=== PATIENT | female | born 1940 | race Caucasian/White ===

== ENCOUNTER 2017-09-10 23:45 | Emergency (ER) | payer MEDICARE ==
[~2017-09-10] VITALS: Ht 152.4 cm; Wt 59.0 kg
--- NOTE | 2017-09-10 23:48 | NUR ---
PT BIB [facility] WITH A C/O AMS. PT WAS AT A DETOX CENTER TO BE WEANED OFF OF ATIVAN. PER PT'S SON, PT WAS ON ATIVAN FOR 50YRS. PT WAS D/C'D HOME AND HAS 24HR CAREGIVERS. PT WAS PLACED ON SEROQUEL, PHENOBARBITAL, PROPANOLOL, & GABAPENTIN. PT IS AWAKE BUT ALERT TO SELF. PT IS ON THE MONITOR AND CONTINUOUS PULSE OX. EKG IN PROGRESS AT THE BEDSIDE.
--- NOTE | 2017-09-11 00:05 | NUR ---
DR. CADET IS AT THE BEDSIDE SPEAKING TO THE PT'S SON AND CAREGIVER.
--- NOTE | 2017-09-11 00:25 | NUR ---
PT LEFT FOR CT VIA RNEY
[2017-09-11 00:28] LABS: BASOPHILS # (AUTO) 0.1 /CMM (0.0-0.2); BASOPHILS % (AUTO) 1.1 % (0.0-2.0); EOSINOPHILS # (AUTO) 0.3 /CMM (0.0-0.7); EOSINOPHILS % (AUTO) 2.9 % (0.0-6.0); HEMATOCRIT 43 % (33-45); HEMOGLOBIN 14.2 g/dL (11.5-14.8); LYMPHOCYTES # (AUTO) 2.4 /CMM (0.8-4.8); LYMPHOCYTES % (AUTO) 24.9 % (20.0-44.0); MEAN CORPUSCULAR HEMOGLOBIN 29 PG (26.0-33.0); MEAN CORPUSCULAR HGB CONC 33 g/dl (31.0-36.0); MEAN CORPUSCULAR VOLUME 88 fL (82-100); MONOCYTES # (AUTO) 1.1 /CMM (0.1-1.30); MONOCYTES % (AUTO) 11.5 % (2.0-12.0); NEUTROPHILS # (AUTO) 5.7 /CMM (1.8-8.9); NEUTROPHILS % (AUTO) 59.6 % (43.0-81.0); PLATELET COUNT (AUTO) 322 /CMM (150-450); RDW COEFFICIENT OF VARIATION 12.6 (11.5-15.0); RED BLOOD CELL COUNT(AUTO) 4.84 MIL/uL (4.0-5.2); WHITE BLOOD COUNT (AUTO) 9.6 K/uL (4.3-11.0)
[2017-09-11 00:33] LABS: CALCIUM, SERUM 10.9 mg/dL (8.5-10.1); CARBON DIOXIDE 23 mmol/L (21-32); CHLORIDE 96 mmol/L (98-107); CREATININE 0.6 mg/dL (0.6-1.3); GLUCOSE 127 mg/dL (74-106); POTASSIUM 3.7 mmol/L (3.5-5.1); SODIUM SERUM 131 mmol/L (136-145); UREA NITROGEN, BLOOD 7 mg/dL (7-18)
[2017-09-11 00:36] LABS: INR 0.98 (0.87-1.13)
[2017-09-11 00:39] LABS: ALANINE AMINOTRANSFERASE 43 U/L (12-78); ALBUMIN 3.9 g/dL (3.4-5.0); ALCOHOL, BLOOD < 3 mg/dL (0-0); ALKALINE PHOSPHATASE 91 U/L (46-116); ASPARTATE AMINOTRANSFERASE 25 U/L (15-37); BILIRUBIN,DIRECT 0.1 mg/dL (0.0-0.2); BILIRUBIN,TOTAL 0.4 mg/dL (0.2-1.0); TOTAL PROTEIN, SERUM 8.6 g/dL (6.4-8.2)
[2017-09-11 00:40] LABS: TROPONIN I < 0.017 ng/mL (0.00-0.056)
[2017-09-11 00:41] LABS: SALICYLATE 1.6 mg/dL (2.8-20.0)
[2017-09-11 00:42] LABS: ACETAMINOPHEN 0 ug/ml (10-30)
--- NOTE | 2017-09-11 00:48 | NUR ---
PT APPEARS TO BE RESTING COMFORTABLY.
[2017-09-11 00:52] LABS: APPEARANCE,URINE CLEAR (CLEAR); BILIRUBIN,URINE NEGATIVE (NEGATIVE); BLOOD, URINE NEGATIVE Ery/uL (NEGATIVE); COLOR,URINE YELLOW (YELLOW); KETONES,URINE 1+ (NEGATIVE); LEUKOCYTE ESTERASE ,URINE NEGATIVE (NEGATIVE); NITRITE, URINE NEGATIVE (NEGATIVE); PH,URINE 6.5 (5.0-8.0); PROTEIN,URINE NEGATIVE (NEGATIVE); UGLUCOSE NEGATIVE (NEGATIVE); UROBILINOGEN,URINE 0.2 EU/dL (0.2)
[2017-09-11 00:58] LABS: BACTERIA,URINE Few /HPF (None Seen); RBC,URINE 0-2 /HPF (0-2); SQUAMOUS EPITHELIAL CELL,UR Rare /HPF (None Seen); WBC,URINE 0-2 /HPF (0-3)
--- NOTE | 2017-09-11 02:11 | NUR ---
Patient discharged to home in stable condition. Written and verbal after care instructions given. Patient verbalizes understanding of instruction. PT'S SON AND CAREGIVER ARE DRIVING PT HOME. VSS. PT REC'D A REFERRAL TO DR. CANTU, RUBBER CUTTER AND SHAPE CARVER IN [place].
[2017-09-11 02:14] VITALS: BP 148/77
--- NOTE | 2017-09-11 02:17 | NUR ---
PT LEFT VIA WC. PT'S SON IS DRIVING HER HOME.
== END 2017-09-11 02:14 | disposition home or self-care (01) ==
LOC: ER 23:47
DX: R41.82 Altered mental status, unspecified (principal); I10 Essential (primary) hypertension; F41.9 Anxiety disorder, unspecified
CPT/HCPCS: 36415; 70450-TC; 71045-TC; 80048-TC; 80076-TC; 80305; 81000-TC; 82962-TC; 83605-TC; 84484-TC; 85025-TC; 85730-TC; 87040-TC; A4606; G0480; Z7610

== ENCOUNTER 2021-07-11 13:35 | Inpatient (IN) | payer MEDICARE ==
[~2021-07-11] VITALS: Ht 152.4 cm; Wt 56.2 kg
--- NOTE | 2021-07-11 14:37 | NUR ---
RAPID INFLUENZA, COVID ANTIGEN AND COVID PCR SWABS DONE AND SENT TO THE LAB
--- NOTE | 2021-07-11 14:39 | NUR ---
X-RAY TECH AT THE BEDSIDE
[2021-07-11 14:52] LABS: BASOPHILS % (AUTO) 0.3 % (0.0-2.0); HEMATOCRIT 42 % (33-45); HEMOGLOBIN 13.7 g/dL (11.5-14.8); LYMPHOCYTES # (AUTO) 0.8 K/uL (0.8-4.8); LYMPHOCYTES % (AUTO) 8.6 % (20.0-44.0); MEAN CORPUSCULAR HGB CONC 33 g/dl (31.0-36.0); MEAN CORPUSCULAR VOLUME 85 fL (82-100); NEUTROPHILS # (AUTO) 7.3 K/uL (1.8-8.9); NEUTROPHILS % (AUTO) 80.1 % (43.0-81.0); PLATELET COUNT (AUTO) 323 K/uL (150-450); WHITE BLOOD COUNT (AUTO) 9.1 K/uL (4.3-11.0)
[2021-07-11] MEDS ORDERED: ESTR0.5T PO (15:03)
[2021-07-11 15:04] LABS: CALCIUM, SERUM 9.4 mg/dL (8.5-10.1); CARBON DIOXIDE 26 mmol/L (21-32); CHLORIDE 96 mmol/L (98-107); CREATININE 0.8 mg/dL (0.6-1.3); GLUCOSE 105 mg/dL (74-106); POTASSIUM 3.9 mmol/L (3.5-5.1); SODIUM SERUM 132 mmol/L (136-145); UREA NITROGEN, BLOOD 10 mg/dL (7-18)
[2021-07-11 15:08] LABS: CREATINE KINASE, TOTAL 78 U/L (26-192)
[2021-07-11 15:11] LABS: C-REACTIVE PROTEIN 11.7 mg/dL (0.0-0.9)
[2021-07-11 15:17] LABS: ALANINE AMINOTRANSFERASE 25 U/L (12-78); ALBUMIN 2.5 g/dL (3.4-5.0); ALKALINE PHOSPHATASE 57 U/L (46-116); ASPARTATE AMINOTRANSFERASE 35 U/L (15-37); BILIRUBIN,TOTAL 0.4 mg/dL (0.2-1.0); TOTAL PROTEIN, SERUM 7.4 g/dL (6.4-8.2)
--- NOTE | 2021-07-11 15:39 | NUR ---
UPDATED SISTER GLENN [phone] - [phone]
[2021-07-11 15:52] LABS: D-DIMER 1.67 mg/L(FEU (0.17-0.50)
[2021-07-11] MEDS ORDERED: AZITHROMYCIN 500 MG in IV D5W 250 ML IV ONE (16:00)
[2021-07-11] MEDS ORDERED: CEFTRIAXONE 1 G in IV D5W 50 ML IV ONE (16:00)
--- NOTE | 2021-07-11 16:20 | NUR ---
URINE COLLECTED AND SENT TO THE LAB
[2021-07-11] MEDS ORDERED: CEFTRIAXONE 1GM BAG (ER ONLY) 50 ML IV ONE (16:34)
[2021-07-11] MEDS ORDERED: IV NS 0.9% 250 ML IV ONE (16:57)
[2021-07-11] MEDS ORDERED: IOHEXOL-350 100 ML VIAL IV ONE (16:57)
--- NOTE | 2021-07-11 17:01 | NUR ---
THE PATIENT IS TAKEN TO CT VIA RNEY
[2021-07-11 18:10] LABS: BILIRUBIN,URINE SMALL (NEGATIVE); COLOR,URINE YELLOW (YELLOW); LEUKOCYTE ESTERASE ,URINE NEGATIVE (NEGATIVE); NITRITE, URINE NEGATIVE (NEGATIVE); PROTEIN,URINE 30 mg/dl (NEGATIVE); UGLUCOSE NEGATIVE (NEGATIVE)
[2021-07-11 18:18] LABS: BACTERIA,URINE Many /HPF (None Seen); SQUAMOUS EPITHELIAL CELL,UR Many /HPF (None Seen)
[2021-07-11 18:19] LABS: RBC,URINE 0-2 /HPF (0-2)
[2021-07-11] MEDS ORDERED: LORAZEPAM INJ 2 MG/ML VIAL IV PRN (18:30)
[2021-07-11] MEDS ORDERED: ONDANSETRON HCL/PF 4 MG/2 ML VIAL IVP PRN (18:30)
[2021-07-11] MEDS ORDERED: ACETAMINOPHEN 325 MG TABLET PO PRN (18:30)
[2021-07-11] MEDS ORDERED: ALBUTEROL SULFATE 8 GM HFA.AER.AD IH PRN (18:30)
--- NOTE | 2021-07-11 18:50 | NUR ---
bes assigned, 109 for next shift
--- NOTE | 2021-07-11 19:22 | NUR ---
REPORT GIVEN TO NURSE YAMILE FOR TONJA
--- NOTE | 2021-07-11 19:30 | NUR ---
SUPPLY CHAIN MANAGER NOTE ADMIT 81 YEAR OLD FEMALE TO ROOM 109 AT [facility] ON MED SURG MONITORING ALERT ORIENTED X2-3 VERBALLY RESPONSIVE ON 3L OXYGEN VIA NASAL CANNULA O2:92% IV SITE IS ON RIGHT AC AND LEFT HAND INTACT PATENT AMBUALTORY WITH ASSIST SAFETY MEASURE IMPLEMENT BED IN LOW POSITION AND LOCKED CALL LIGHT WITHIN REACH CONTINUE TO MONITOR.
--- NOTE | 2021-07-11 19:31 | NUR ---
PT GOING UP TO UNIT ON GURNEY WITH EMT AT BEDSIDE ON STABLE CONDITION.
[2021-07-11] MEDS: ENOXAPARIN SODIUM 40 MG/0.4 ML DISP.SYRIN SQ SCH (20:33)
[2021-07-11 22:00] VITALS: BP 156/73
[2021-07-12 06:32] LABS: BASOPHILS % (AUTO) 0.3 % (0.0-2.0); HEMATOCRIT 42 % (33-45); HEMOGLOBIN 13.9 g/dL (11.5-14.8); LYMPHOCYTES # (AUTO) 0.9 K/uL (0.8-4.8); LYMPHOCYTES % (AUTO) 12.7 % (20.0-44.0); MEAN CORPUSCULAR HGB CONC 34 g/dl (31.0-36.0); MEAN CORPUSCULAR VOLUME 83 fL (82-100); MONOCYTES # (AUTO) 0.7 K/uL (0.1-1.30); MONOCYTES % (AUTO) 9.5 % (2.0-12.0); NEUTROPHILS # (AUTO) 5.7 K/uL (1.8-8.9); NEUTROPHILS % (AUTO) 77.5 % (43.0-81.0); PLATELET COUNT (AUTO) 343 K/uL (150-450); RED BLOOD CELL COUNT(AUTO) 4.99 MIL/uL (4.0-5.2); WHITE BLOOD COUNT (AUTO) 7.4 K/uL (4.3-11.0)
[2021-07-12 06:50] LABS: CALCIUM, SERUM 10.1 mg/dL (8.5-10.1); CREATININE 0.7 mg/dL (0.6-1.3); MAGNESIUM 2.2 mg/dL (1.8-2.4); PHOSPHORUS 2.9 mg/dL (2.5-4.9); POTASSIUM 3.6 mmol/L (3.5-5.1)
--- NOTE | 2021-07-12 06:55 | NUR ---
RN NOTE PATIENT REMAINS ALERT ORIENTED 2-3 VERBALLY RESPONSIVE ON 3L OXYGEN VIA NASAL CANNULA,NO SOB NOT ACUTE DISTRESS NOTED,KEPT CLEAN AND DRY ALL THE TIME,ALL NEEDS MET ENDORSE NEXT COMING SHIFT FOR CONTINUATION OF CARE.
[2021-07-12] MEDS: ESTRADIOL 1 MG TABLET PO SCH (09:19)
[2021-07-12] MEDS: DEXAMETHASONE SOD PHOSPHATE 4 MG/ML VIAL IV SCH (09:19)
[2021-07-12] MEDS: ENOXAPARIN SODIUM 40 MG/0.4 ML DISP.SYRIN SQ SCH (09:22)
[2021-07-12 10:00] VITALS: BP 113/80
--- NOTE | 2021-07-12 10:50 | NUR ---
RN NOTE PT JUST ASSIGNED TO ME BY CHARGE NURSE FOR CONTINUE OF CARE
--- NOTE | 2021-07-12 18:29 | NUR ---
RN CLOSING NOTE PATIENT REMAINS IN BED ALERT AND ORIENTED 2-3 VERBALLY RESPONSIVE, BREATHING EVEN AND UNLABORED, ON 3L OXYGEN VIA NASAL CANNULA, NO SOB NOT ACUTE DISTRESS NOTED, ALL NEEDS MET DURING SHIFT, ISOLATION PRECAUTION IN PLACE SAFETY MEASURES IMPLEMENTED BED ALARM ON, BED LOCKED AND IN LOWEST POSITION CALL LIGHT WITHIN REACH WILL ENDORSE TO INSTRUMENT REPAIRER HELPERSHOWER ENCLOSURE INSTALLER
--- NOTE | 2021-07-12 19:35 | NUR ---
RN OPENING NOTE RECEIVED PT IN BED A/O 2-3 VERBALLY RESPONSIVE, BREATHING EVEN AND UNLABORED, ON 3L OXYGEN VIA NASAL CANNULA, NO SOB, NO ACUTE DISTRESS NOTED. ISOLATION PRECAUTION IN PLACE. SAFETY PRECAUTIONS MAINTAINED. BED IN LOWEST LOCKED POSITION, HOB ELEVATED, SIDE RAILS UP X2, BED ALARM ON, AND CALL LIGHT AND TABLE WITHIN REACH. WILL CONTINUE WITH PLAN OF CARE.
[2021-07-12 22:00] VITALS: BP 154/85
--- NOTE | 2021-07-13 05:30 | NUR ---
RN NOTE O2 SATURATION 82%. TRIED INCREASING O2 TO 5 LPM AND O2 SAT GOT TO 89%. TALKED TO CHARGE NURSE AND PUT PT ON NON REBREATHER AT 15 LPM. O2 SAT INCREASED TO 94%. CHARGE NURSE INSTRUCTED ME TO LEAVE ON NON REBREATHER FOR NOW. WILL CONTINUE TO MONITOR.
--- NOTE | 2021-07-13 06:45 | NUR ---
RN CLOSING NOTE PT IN BED A/O 2-3 VERBALLY RESPONSIVE, BREATHING EVEN AND UNLABORED, ON 15 LPM ON NON REBREATHER WITH O2 SAT @ 95%. NO S/S OF RESPIRATORY DISTRESS NOTED. ISOLATION PRECAUTION IN PLACE. ALL NEEDS MET AT THIS TIME. SAFETY PRECAUTIONS MAINTAINED AT ALL TIMES. BED IN LOWEST LOCKED POSITION, HOB ELEVATED, SIDE RAILS UP X2, BED ALARM ON, AND CALL LIGHT AND TABLE WITHIN REACH. WILL ENDORSE TO ONCOMING SHIFT FOR TONJA.
[2021-07-13 07:00] LABS: CREATININE 0.6 mg/dL (0.6-1.3); POTASSIUM 4.1 mmol/L (3.5-5.1)
--- NOTE | 2021-07-13 07:31 | NUR ---
RN OPENING NOTE RECEIVED PT IN BED A/O 3 VERBALLY RESPONSIVE, BREATHING EVEN AND UNLABORED, ON 15 LPM ON NON REBREATHER . IV ACCESS IN PLACE ON LAC. NO S/S OF RESPIRATORY DISTRESS NOTED. ISOLATION PRECAUTION IN PLACE. SAFETY PRECAUTIONS IN PLACE BED IN LOWEST LOCKED POSITION, HOB ELEVATED, SIDE RAILS UP X2, BED ALARM ON, AND CALL LIGHT AND TABLE WITHIN REACH.
[2021-07-13 08:56] LABS: BASOPHILS % (AUTO) 0.3 % (0.0-2.0); EOSINOPHILS % (AUTO) 0.2 % (0.0-6.0); HEMATOCRIT 43 % (33-45); HEMOGLOBIN 14.3 g/dL (11.5-14.8); LYMPHOCYTES # (AUTO) 1.2 K/uL (0.8-4.8); LYMPHOCYTES % (AUTO) 16.3 % (20.0-44.0); MEAN CORPUSCULAR HGB CONC 34 g/dl (31.0-36.0); MEAN CORPUSCULAR VOLUME 83 fL (82-100); MONOCYTES # (AUTO) 0.9 K/uL (0.1-1.30); MONOCYTES % (AUTO) 12.4 % (2.0-12.0); NEUTROPHILS # (AUTO) 5.4 K/uL (1.8-8.9); NEUTROPHILS % (AUTO) 70.8 % (43.0-81.0); PLATELET COUNT (AUTO) 413 K/uL (150-450); RED BLOOD CELL COUNT(AUTO) 5.13 MIL/uL (4.0-5.2); WHITE BLOOD COUNT (AUTO) 7.6 K/uL (4.3-11.0)
[2021-07-13] MEDS: ESTRADIOL 1 MG TABLET PO SCH (09:00)
[2021-07-13] MEDS: ENOXAPARIN SODIUM 40 MG/0.4 ML DISP.SYRIN SQ SCH (09:00)
[2021-07-13] MEDS: DEXAMETHASONE SOD PHOSPHATE 4 MG/ML VIAL IV SCH (09:00)
[2021-07-13 10:00] VITALS: BP 154/85
[2021-07-13] MEDS: busPIRone 5 MG TABLET PO SCH (18:09)
[2021-07-13 18:43] VITALS: BP 157/85
--- NOTE | 2021-07-13 19:17 | NUR ---
RN CLOSING NOTE RECEIVED PT IN BED A/O 3 VERBALLY RESPONSIVE, BREATHING EVEN AND UNLABORED, ON 4L NC . IV ACCESS IN PLACE ON LAC. NO S/S OF RESPIRATORY DISTRESS NOTED. ISOLATION PRECAUTION IN PLACE. SAFETY PRECAUTIONS IN PLACE BED IN LOWEST LOCKED POSITION, HOB ELEVATED, SIDE RAILS UP X2, BED ALARM ON, AND CALL LIGHT AND TABLE WITHIN REACH.WILL ENDORSE TO NIGHT NURSE FOR TONJA.
[2021-07-13 20:00] VITALS: BP 151/85
--- NOTE | 2021-07-13 20:47 | NUR ---
RECEIVED REPORT FOR PATIENT. PATIENT STABLE. WILL CONTINUE TO MONITOR.
[2021-07-13] MEDS: LORAZEPAM INJ 2 MG/ML VIAL IV PRN (20:56)
--- NOTE | 2021-07-13 21:10 | NUR ---
ADMINISTERED ATIVAN @ 2055. VS WNL. WILL CONTINUE TO MONITOR.
[2021-07-14 04:00] VITALS: BP 156/82
[2021-07-14 05:00] VITALS: BP 156/82
--- NOTE | 2021-07-14 06:50 | NUR ---
RN CLOSING NOTES PT IN BED, AWAKE. AOx2-3, ABLE TO MAKE NEEDS KNOWN. ON 4L NC AND TOLERATING WELL. NO SOB NOTED. NO S/SX OF RESPIRATORY DISTRESS NOTED. IV ACCESS IN JACK MIDLINE #18. IV IS INTACT, PATENT, AND FLUSHING WELL. ALL NEEDS MET. PT KEPT CLEAN AND DRY. SAFETY PRECAUTIONS IN PLACE: BED IN LOWEST, LOCKED POSITION, SIDERAILS UP X2, AND BRAKES ON. TABLE AND CALL LIGHT WITHIN REACH. WILL ENDORSE TO ONCOMING SHIFT FOR TONJA.
[2021-07-14] MEDS: ESTRADIOL 1 MG TABLET PO SCH (08:59)
[2021-07-14] MEDS: busPIRone 5 MG TABLET PO SCH ×3 (08:59→16:07)
[2021-07-14] MEDS: DEXAMETHASONE SOD PHOSPHATE 4 MG/ML VIAL IV SCH (08:59)
[2021-07-14] MEDS: ENOXAPARIN SODIUM 40 MG/0.4 ML DISP.SYRIN SQ SCH (09:01)
[2021-07-14 13:00] VITALS: BP 149/68
--- NOTE | 2021-07-14 18:54 | NUR ---
RN NOTE PATIENT REMAINS IN BED, ON ROOM AIR WITH NO SIGNS OF LABORED BREATHING. IV IN PLACE, PATENT. PATIENT A&OX2 WITH CONFUSION AND ANXIETY. ALL NEEDS ATTENDED DURING SHIFT. BED LOCKED AND IN LOWEST POSITION, CALL LIGHT WITHIN REACH, 3 SIDE RAILS UP. WILL ENDORSE TO MODELING AND SIMULATION ANALYST NURSE.
--- NOTE | 2021-07-14 19:40 | NUR ---
MS/RN OPENING NOTE RECEIVED PATIENT RESTING IN BED. AWAKE, ALERT AND ORIENTED X 2-3. ABLE TO MAKE NEEDS KNOWN. DENIES PAIN AT THIS TIME. CONTINUES ON O2 2L VIA NC WITH NO S/SX OF RESPIRATORY DISTRESS NOTED. IV ACCESS TO RIGHT AC #18G INTACT, PATENT AND SALINE LOCKED. CONTINUES ON SOFT DIET WITH NO S/SX OF ASPIRATION NOTED. CALL LIGHT WITHIN REACH. ASPIRATION, FALL AND SAFETY PRECAUTIONS MAINTAINED. WILL CONTINUE TO MONITOR.
[2021-07-14 21:00] VITALS: BP 147/72
[2021-07-15 05:00] VITALS: BP 146/83
--- NOTE | 2021-07-15 06:50 | NUR ---
MS/RN CLOSING NOTE PATIENT CURRENTLY RESTING IN BED. AWAKE, ALERT AND ORIENTED X 2-3. ABLE TO MAKE NEEDS KNOWN. DENIES PAIN AT THIS TIME. CONTINUES ON O2 2L VIA NC WITH NO S/SX OF RESPIRATORY DISTRESS NOTED. IV ACCESS TO RIGHT AC #18G INTACT, PATENT AND SALINE LOCKED. CONTINUES ON SOFT DIET WITH NO S/SX OF ASPIRATION NOTED. CALL LIGHT WITHIN REACH. ASPIRATION, FALL AND SAFETY PRECAUTIONS MAINTAINED. WILL ENDORSE PLAN OF CARE TO ONCOMING SHIFT.
--- NOTE | 2021-07-15 07:48 | NUR ---
MS RN OPENING NOTE Patient in bed, awake. A/O x 2-3, able to make needs known. On O2 at 2 LPM via NC, breathing evenly and unlabored. No SOB or s/s/ of distress noted. IV access on RAC #18G, SL intact and patent. Safety precautions in place: bed inlow, locked position; siderails up x 2; call light within reach. Will continue to monitor.
[2021-07-15] MEDS: DEXAMETHASONE SOD PHOSPHATE 10 MG/ML VIAL IV SCH (10:21)
[2021-07-15] MEDS: busPIRone 5 MG TABLET PO SCH ×3 (10:21→18:09)
[2021-07-15] MEDS: ESTRADIOL 1 MG TABLET PO SCH (10:22)
[2021-07-15] MEDS: ENOXAPARIN SODIUM 40 MG/0.4 ML DISP.SYRIN SQ SCH (10:24)
[2021-07-15 13:00] VITALS: BP 150/76
[2021-07-15] MEDS ORDERED: REMDESIVIR (CHARGED) 200 MG, *LOADING DOSE 1 EA in IV NS 0.9% 210 ML IV ONE ×2 (13:30→16:00)
[2021-07-15 15:01] LABS: BASOPHILS % (AUTO) 0.1 % (0.0-2.0); HEMATOCRIT 42 % (33-45); HEMOGLOBIN 13.7 g/dL (11.5-14.8); LYMPHOCYTES # (AUTO) 0.5 K/uL (0.8-4.8); LYMPHOCYTES % (AUTO) 3.9 % (20.0-44.0); MEAN CORPUSCULAR HGB CONC 33 g/dl (31.0-36.0); MEAN CORPUSCULAR VOLUME 84 fL (82-100); MONOCYTES # (AUTO) 0.4 K/uL (0.1-1.30); MONOCYTES % (AUTO) 3.5 % (2.0-12.0); NEUTROPHILS # (AUTO) 11.3 K/uL (1.8-8.9); NEUTROPHILS % (AUTO) 92.5 % (43.0-81.0); PLATELET COUNT (AUTO) 501 K/uL (150-450); RED BLOOD CELL COUNT(AUTO) 5.01 MIL/uL (4.0-5.2); WHITE BLOOD COUNT (AUTO) 12.2 K/uL (4.3-11.0)
[2021-07-15 15:21] LABS: ALBUMIN 2.3 g/dL (3.4-5.0); BILIRUBIN,DIRECT 0.1 mg/dL (0.0-0.2); BILIRUBIN,TOTAL 0.3 mg/dL (0.2-1.0); CALCIUM, SERUM 10.7 mg/dL (8.5-10.1); CREATININE 0.6 mg/dL (0.6-1.3); POTASSIUM 4.1 mmol/L (3.5-5.1); TOTAL PROTEIN, SERUM 7.3 g/dL (6.4-8.2)
--- NOTE | 2021-07-15 18:53 | NUR ---
MS RN CLOSING NOTE Patient in bed, awake. A/O x 2-3, able to make needs known. On O2 at 2 LPM via NC, breathing evenly and unlabored. No SOB or s/s/ of distress noted. IV access on Right wrist #24G, SL intact and patent. All needs attended to. Due meds given. Safety precautions maintained: bed in low, locked position; siderails up x 2; call light within reach. Will endorse to warehouse supervisor 3rd shift nurse for TONJA.
--- NOTE | 2021-07-15 19:35 | NUR ---
MS RN OPENING NOTE PATIENT AWAKE IN ROOM. A/OX2. NO S/S OF DISTRESS, BREATHING SYMMETRICAL. NC 4L PRN. SAFETY MEASURES IN PLACE: BED AT LOWEST POSITION, RAILS UP X2, CALL CHU WITHIN REACH. WILL CONTINUE TO MONITOR PATIENT.
[2021-07-15 20:00] VITALS: BP 158/94
[2021-07-15 21:00] VITALS: BP 158/94
[2021-07-16] MEDS: LORAZEPAM INJ 2 MG/ML VIAL IV PRN (00:50)
[2021-07-16 05:00] VITALS: BP 160/91
--- NOTE | 2021-07-16 06:20 | NUR ---
MS RN CLOSING NOTE PATIENT AWAKE IN BED. A/OX2. NO S/S OF DISTRESS, BREATHING SYMMETRICAL; NC 4L. LFA #22 SL PATENT. PATIENT HAS REMAINED AGITATED THROUGHOUT THE NIGHT. ATIVAN WAS ADMINISTERED AT NIGHT WHICH DID AID PATIENT IN BECOMING CALM, BUT PATIENT HAS NOW RETURNED TO A MORE AGITATED STATE. SAFETY MEASURES IN PLACE: BED AT LOWEST POSITION, RAILS UP X2, CALL CHU WITHIN REACH. WILL ENDORSE TO NEXT SHIFT FOR TONJA.
--- NOTE | 2021-07-16 07:35 | NUR ---
RN OPENING NOTE RECEIVED PATIENT AWAKE, ALERT/ORIENTED X2. BREATHING EVEN AND UNLABORED. NO SOB OR ANY ACUTE DISTRESS NOTED. ON O2 4LPM VIA NC, TOLERATING WELL. IV ACCESS ON LEFT FOREARM #22 INTACT, PATENT AND FLUSHED. ALL APPLICABLE ISOLATION PRECAUTIONS IN PLACED. ALL SAFETY MEASURES IN PLACE: BED LOCKED AND AT LOWEST POSITION, RAILS UP X2, CALL CHU WITHIN REACH. WILL CONTINUE TO MONITOR PATIENT ACCORDINGLY.
[2021-07-16] MEDS: ESTRADIOL 1 MG TABLET PO SCH (08:35)
[2021-07-16] MEDS: busPIRone 5 MG TABLET PO SCH ×3 (08:35→16:23)
[2021-07-16] MEDS: ENOXAPARIN SODIUM 40 MG/0.4 ML DISP.SYRIN SQ SCH (08:35)
[2021-07-16] MEDS: DEXAMETHASONE SOD PHOSPHATE 10 MG/ML VIAL IV SCH (08:35)
[2021-07-16 12:00] VITALS: BP 158/85
[2021-07-16 13:00] VITALS: BP 158/85
[2021-07-16] MEDS ORDERED: REMDESIVIR (CHARGED) 100 MG in IV NS 0.9% 100 ML IV SCH (13:30)
[2021-07-16] MEDS: AMLODIPINE BESYLATE 5 MG TABLET PO SCH (14:24)
[2021-07-16 15:57] LABS: HEMATOCRIT 47 % (33-45); HEMOGLOBIN 15.3 g/dL (11.5-14.8); LYMPHOCYTES # (AUTO) 0.5 K/uL (0.8-4.8); LYMPHOCYTES % (AUTO) 5.5 % (20.0-44.0); MEAN CORPUSCULAR HGB CONC 33 g/dl (31.0-36.0); MEAN CORPUSCULAR VOLUME 84 fL (82-100); MONOCYTES # (AUTO) 0.2 K/uL (0.1-1.30); MONOCYTES % (AUTO) 2.3 % (2.0-12.0); NEUTROPHILS # (AUTO) 8.5 K/uL (1.8-8.9); NEUTROPHILS % (AUTO) 92.2 % (43.0-81.0); PLATELET COUNT (AUTO) 585 K/uL (150-450); RED BLOOD CELL COUNT(AUTO) 5.53 MIL/uL (4.0-5.2); WHITE BLOOD COUNT (AUTO) 9.2 K/uL (4.3-11.0)
[2021-07-16 16:13] LABS: ALBUMIN 2.7 g/dL (3.4-5.0); BILIRUBIN,DIRECT 0.1 mg/dL (0.0-0.2); BILIRUBIN,TOTAL 0.4 mg/dL (0.2-1.0); CALCIUM, SERUM 11.1 mg/dL (8.5-10.1); CREATININE 0.9 mg/dL (0.6-1.3); TOTAL PROTEIN, SERUM 8.6 g/dL (6.4-8.2)
[2021-07-16] MEDS: REMDESIVIR (CHARGED) 100 MG in IV NS 0.9% 100 ML IV SCH (18:15)
--- NOTE | 2021-07-16 19:15 | NUR ---
RN OPENING NOTES RECEIVED PATIENT IN BED, AWAKE, ALERT AND VERBALLY RESPONSIVE, NO SOB NOTED NOT IN DISTRESS, A/O X 2-3 PT ON NASAL CANULA @ 4 LPM . PATIENT NOTED WITH LEFT FORE ARM G#22 IV LINE, PATENT INTACT AND FLUSHED WITH NORMAL SALINE. ALL SAFETY PRECAUTION IMPLEMENTED. BED IS AT LOWEST POSITION AND LOCKED. BED ALARM ARMED. CALL LIGHT IS WITHIN REACH. WILL CONTINUE TO MONITOR
--- NOTE | 2021-07-16 19:23 | NUR ---
RN CLOSING NOTES PATIENT REMAINS AT STABLE CONDITION THROUGHOUT SHIFT. ON O2 4LPM VIA NC, TOLERATING WELL. BREATHING EVEN AND UNLABORED. NO SOB OR ANY ACUTE DISTRESS NOTED. IV ACCESS ON LEFT FOREARM #22 PATENT AND INTACT. ALL DUE MEDS GIVEN ORDERED. ALL NEEDS ATTENDED. KEPT PATIENT CLEAN, DRY AND COMFORTABLE. ALL APPLICABLE ISOLATION PRECAUTIONS MAINTAINED. ALL SAFETY MEASURES MAINTAINED. HOB ELEVATED BED LOCKED AND IN LOWEST POSITION WITH SIDERAILS UP CALL LIGHT WITHIN REACH. WILL ENDORSE TO ONCOMING NURSE FOR TONJA.
[2021-07-16 21:00] VITALS: BP 133/92
[2021-07-17 05:00] VITALS: BP 130/85
--- NOTE | 2021-07-17 07:10 | NUR ---
RN CLOSING NOTES PATIENT REMAIN STABLE THROUGH OUT THE SHIFT, NO SOB NOTED NOT IN DISTRESS, A/O X 2-3 PT ON NASAL CANULA @ 4 LPM . PATIENT NOTED WITH LEFT FORE ARM G#22 IV LINE, PATENT INTACT AND FLUSHED WITH NORMAL SALINE. ALL DUE MEDS GIVEN ORDERED. ALL SAFETY PRECAUTION IMPLEMENTED. BED IS AT LOWEST POSITION AND LOCKED. BED ALARM ARMED. CALL LIGHT IS WITHIN REACH. WILL CONTINUE TO MONITOR
--- NOTE | 2021-07-17 07:35 | NUR ---
RN OPENING NOTE RECEIVED PATIENT AWAKE, ALERT/ORIENTED X2. BREATHING EVEN AND UNLABORED. NO SOB OR ANY ACUTE DISTRESS NOTED. ON O2 4LPM VIA NC, TOLERATING WELL. IV ACCESS ON LEFT FOREARM #22 INTACT, PATENT AND FLUSHED. ALL APPLICABLE ISOLATION PRECAUTIONS IN PLACED. ALL SAFETY MEASURES IN PLACE: BED LOCKED AND AT LOWEST POSITION, RAILS UP X2, CALL LIGHT WITHIN REACH. WILL CONTINUE TO MONITOR PATIENT ACCORDINGLY.
[2021-07-17 08:05] LABS: BASOPHILS % (AUTO) 0.2 % (0.0-2.0); EOSINOPHILS % (AUTO) 0.4 % (0.0-6.0); HEMATOCRIT 44 % (33-45); HEMOGLOBIN 14.5 g/dL (11.5-14.8); LYMPHOCYTES # (AUTO) 1.5 K/uL (0.8-4.8); LYMPHOCYTES % (AUTO) 11.4 % (20.0-44.0); MEAN CORPUSCULAR HGB CONC 33 g/dl (31.0-36.0); MEAN CORPUSCULAR VOLUME 83 fL (82-100); MONOCYTES % (AUTO) 7.1 % (2.0-12.0); NEUTROPHILS % (AUTO) 80.9 % (43.0-81.0); PLATELET COUNT (AUTO) 565 K/uL (150-450); RED BLOOD CELL COUNT(AUTO) 5.26 MIL/uL (4.0-5.2); WHITE BLOOD COUNT (AUTO) 13.6 K/uL (4.3-11.0)
[2021-07-17 08:13] LABS: ALBUMIN 2.5 g/dL (3.4-5.0); BILIRUBIN,DIRECT 0.1 mg/dL (0.0-0.2); BILIRUBIN,TOTAL 0.4 mg/dL (0.2-1.0); CALCIUM, SERUM 10.5 mg/dL (8.5-10.1); CREATININE 0.7 mg/dL (0.6-1.3); POTASSIUM 3.9 mmol/L (3.5-5.1); TOTAL PROTEIN, SERUM 7.9 g/dL (6.4-8.2)
[2021-07-17] MEDS: DEXAMETHASONE SOD PHOSPHATE 10 MG/ML VIAL IV SCH (09:30)
[2021-07-17] MEDS: ESTRADIOL 1 MG TABLET PO SCH (09:30)
[2021-07-17] MEDS: ENOXAPARIN SODIUM 40 MG/0.4 ML DISP.SYRIN SQ SCH (09:30)
[2021-07-17] MEDS: busPIRone 5 MG TABLET PO SCH ×3 (09:31→16:28)
[2021-07-17] MEDS: AMLODIPINE BESYLATE 5 MG TABLET PO SCH (09:31)
[2021-07-17 13:00] VITALS: BP 130/85
[2021-07-17] MEDS: REMDESIVIR (CHARGED) 100 MG in IV NS 0.9% 100 ML IV SCH (15:30)
--- NOTE | 2021-07-17 20:07 | NUR ---
RN CLOSING NOTES PATIENT REMAINS AT STABLE CONDITION THROUGHOUT SHIFT. ON O2 4LPM VIA NC, TOLERATING WELL. BREATHING EVEN AND UNLABORED. NO SOB OR ANY ACUTE DISTRESS NOTED. IV ACCESS ON LEFT FOREARM #22 PATENT AND INTACT. ALL DUE MEDS GIVEN ORDERED. ALL NEEDS ATTENDED. KEPT PATIENT CLEAN, DRY AND COMFORTABLE. ALL APPLICABLE ISOLATION PRECAUTIONS MAINTAINED. ALL SAFETY MEASURES MAINTAINED. HOB ELEVATED BED LOCKED AND IN LOWEST POSITION WITH SIDERAILS UP CALL LIGHT WITHIN REACH. ENDORSED TO ONCOMING NURSE FOR TONJA.
[2021-07-17 21:00] VITALS: BP 130/85
[2021-07-18 05:00] VITALS: BP 143/85
--- NOTE | 2021-07-18 07:43 | NUR ---
RN CLOSING NOTES PATIENT REMAIN STABLE THROUGH OUT THE SHIFT. NO SOB NOTED NOT IN DISTRESS, A/O X 2-3 PT ON NASAL CANULA @ 4 LPM . PATIENT NOTED WITH LEFT FORE ARM G#22 IV LINE, PATENT INTACT AND FLUSHED WITH NORMAL SALINE. ALL SAFETY PRECAUTION IMPLEMENTED. BED IS AT LOWEST POSITION AND LOCKED. BED ALARM ARMED. CALL LIGHT IS WITHIN REACH. WILL CONTINUE TO MONITOR. ENDORSED TO NEXT SHIFT.
[2021-07-18 08:17] LABS: BASOPHILS % (AUTO) 0.2 % (0.0-2.0); EOSINOPHILS % (AUTO) 0.1 % (0.0-6.0); HEMATOCRIT 45 % (33-45); HEMOGLOBIN 14.6 g/dL (11.5-14.8); LYMPHOCYTES # (AUTO) 1.5 K/uL (0.8-4.8); LYMPHOCYTES % (AUTO) 12.1 % (20.0-44.0); MEAN CORPUSCULAR HGB CONC 33 g/dl (31.0-36.0); MEAN CORPUSCULAR VOLUME 84 fL (82-100); MONOCYTES % (AUTO) 8.5 % (2.0-12.0); NEUTROPHILS # (AUTO) 9.5 K/uL (1.8-8.9); NEUTROPHILS % (AUTO) 79.1 % (43.0-81.0); PLATELET COUNT (AUTO) 603 K/uL (150-450); RED BLOOD CELL COUNT(AUTO) 5.34 MIL/uL (4.0-5.2)
[2021-07-18 08:31] LABS: ALBUMIN 2.5 g/dL (3.4-5.0); BILIRUBIN,DIRECT 0.1 mg/dL (0.0-0.2); BILIRUBIN,TOTAL 0.4 mg/dL (0.2-1.0); CALCIUM, SERUM 10.5 mg/dL (8.5-10.1); CREATININE 0.8 mg/dL (0.6-1.3); POTASSIUM 3.6 mmol/L (3.5-5.1); TOTAL PROTEIN, SERUM 7.8 g/dL (6.4-8.2)
[2021-07-18] MEDS: AMLODIPINE BESYLATE 5 MG TABLET PO SCH (10:58)
[2021-07-18] MEDS: ENOXAPARIN SODIUM 40 MG/0.4 ML DISP.SYRIN SQ SCH (10:59)
[2021-07-18] MEDS: busPIRone 5 MG TABLET PO SCH ×3 (11:00→18:27)
[2021-07-18] MEDS: DEXAMETHASONE SOD PHOSPHATE 10 MG/ML VIAL IV SCH (11:00)
[2021-07-18] MEDS: ESTRADIOL 1 MG TABLET PO SCH (11:00)
[2021-07-18 13:00] VITALS: BP 140/76
[2021-07-18] MEDS: REMDESIVIR (CHARGED) 100 MG in IV NS 0.9% 100 ML IV SCH (15:35)
--- NOTE | 2021-07-18 19:30 | NUR ---
MS RN OPENING NOTE RECEIVED PATIENT IN BED, ISOLATION IN PLACE. A/OX2-3. NO S/S OF APPARENT DISTRESS ON 4LPM OF O2 VIA NC. NO C/O PAIN BUT PER PATIENT SHE IS VERY ANXIOUS. NO IV FLUIDS RUNNING AT THIS TIME. SAFETY IN PLACE. WILL CONTINUE WITH PLAN OF CARE FOR PATIENT.
[2021-07-18] MEDS: LORAZEPAM INJ 2 MG/ML VIAL IV PRN (20:00)
--- NOTE | 2021-07-18 20:00 | NUR ---
MS RN NOTE PATIENT VERY ANXIOUS AND RESTLESS AT THIS TIME, GIVEN ATIVAN 0.5. WILL CONTINUE TO MONITOR.
[2021-07-18 21:00] VITALS: BP 143/102
[2021-07-19 05:00] VITALS: BP 142/78
--- NOTE | 2021-07-19 06:36 | NUR ---
MS RN CLOSING NOTE PATIENT IN BED WITH EYES CLOSED. A/OX3. NO S/S OF APPARENT DISTRESS ON 4LPM O2 VIA NC. HOB ELEVATED. DENIES PAIN. NEEDS ATTENDED. ALL SCHEDULED MEDS ADMINISTERED. NO FLUIDS RUNNING AT THIS TIME. SAFETY IN PLACE. ISOLATION PRECAUTION SAFELY FOLLOWED. WILL ENDORSE TO MORNING RN FOR CONTINUITY OF CARE.
--- NOTE | 2021-07-19 07:31 | NUR ---
RN OPENING NOTES RECEIVED PATIENT IN BED, AWAKE AND VERBALLY RESPONSIVE, NOT SOB OR DISTRESS NOTED AT THIS TIME, A/O X 2-3 , PT ON NASAL CANULA @ 4 LPM . BREATHING EVEN AND UNLABORED, PATIENT NOTED WITH LEFT FORE ARM G#20 IV LINE LEAKING CHARGE NURSE NOTIFIED, ALL SAFETY PRECAUTION IMPLEMENTED. BED IS AT LOWEST POSITION AND LOCKED. BED ALARM ARMED ON. CALL LIGHT IS WITHIN REACH. WILL CONTINUE TO MONITOR
[2021-07-19 07:34] LABS: BASOPHILS % (AUTO) 0.1 % (0.0-2.0); EOSINOPHILS % (AUTO) 0.1 % (0.0-6.0); HEMATOCRIT 42 % (33-45); HEMOGLOBIN 14.1 g/dL (11.5-14.8); LYMPHOCYTES # (AUTO) 1.3 K/uL (0.8-4.8); LYMPHOCYTES % (AUTO) 13.2 % (20.0-44.0); MEAN CORPUSCULAR HGB CONC 34 g/dl (31.0-36.0); MEAN CORPUSCULAR VOLUME 83 fL (82-100); MONOCYTES % (AUTO) 9.4 % (2.0-12.0); NEUTROPHILS # (AUTO) 7.9 K/uL (1.8-8.9); NEUTROPHILS % (AUTO) 77.2 % (43.0-81.0); PLATELET COUNT (AUTO) 521 K/uL (150-450); RED BLOOD CELL COUNT(AUTO) 5.08 MIL/uL (4.0-5.2); WHITE BLOOD COUNT (AUTO) 10.2 K/uL (4.3-11.0)
[2021-07-19 08:26] LABS: ALBUMIN 2.5 g/dL (3.4-5.0); BILIRUBIN,DIRECT 0.2 mg/dL (0.0-0.2); BILIRUBIN,TOTAL 0.4 mg/dL (0.2-1.0); CALCIUM, SERUM 10.6 mg/dL (8.5-10.1); CREATININE 0.7 mg/dL (0.6-1.3); POTASSIUM 3.9 mmol/L (3.5-5.1); TOTAL PROTEIN, SERUM 7.3 g/dL (6.4-8.2)
[2021-07-19] MEDS: busPIRone 5 MG TABLET PO SCH ×3 (08:49→17:21)
[2021-07-19] MEDS: DEXAMETHASONE SOD PHOSPHATE 10 MG/ML VIAL IV SCH (08:49)
[2021-07-19] MEDS: ESTRADIOL 1 MG TABLET PO SCH (08:49)
[2021-07-19] MEDS: AMLODIPINE BESYLATE 5 MG TABLET PO SCH (08:49)
[2021-07-19] MEDS: ENOXAPARIN SODIUM 40 MG/0.4 ML DISP.SYRIN SQ SCH (08:55)
[2021-07-19 13:00] VITALS: BP 140/76
[2021-07-19] MEDS ORDERED: AMLO-212 PO (14:43)
[2021-07-19] MEDS ORDERED: DEXA4TAB PO (14:43)
[2021-07-19] MEDS ORDERED: BUSP5TAB3 PO (14:43)
[2021-07-19] MEDS: REMDESIVIR (CHARGED) 100 MG in IV NS 0.9% 100 ML IV SCH (15:40)
--- NOTE | 2021-07-19 18:22 | NUR ---
[facility] report given to melva pt transferred via ambulance
== END 2021-07-19 18:38 | DRG 177 ==
LOC: ER 13:40 → TRANSITION 17:58 → TELE1 18:57 → MEDSG1 19:21
PROVIDERS: ADMIT Nurse Practitioner Acute Care; ATTEND Internal Medicine
PROC: XW033E5 Introduction of Remdesivir Anti-infective into Peripheral Vein, Percutaneous Approach, New Technology Group 5 (ICD-10-PCS; principal; 2021-07-15)
DX: U07.1 COVID-19 (principal); J96.01 Acute respiratory failure with hypoxia; J12.82 Pneumonia due to coronavirus disease 2019; E87.1 Hypo-osmolality and hyponatremia; I10 Essential (primary) hypertension; F41.9 Anxiety disorder, unspecified; Z79.818 Long term (current) use of other agents affecting estrogen receptors and estrogen levels; F03.90 Unspecified dementia, unspecified severity, without behavioral disturbance, psychotic disturbance, mood disturbance, and anxiety; Z95.1 Presence of aortocoronary bypass graft; E86.0 Dehydration; F13.21 Sedative, hypnotic or anxiolytic dependence, in remission
CPT/HCPCS: 36415; 71045-TC; 80048-TC; 80053-TC; 80076-TC; 81001; 82550-TC; 82728-TC; 83605-TC; 83615-TC; 83735-TC; 83880; 84100-TC; 84443-TC; 84484-TC; 85025-TC; 85378-TC; 85610-TC; 85730-TC; 86140-TC; 86701; 87040-TC; 87086-TC; 93970-TC; A4216; C9803; G0378; J0456; J0696; J1100; J1650; J2060; J7030; J7040; J7050; J7060; Q9967; U0003

== ENCOUNTER 2022-01-08 19:30 | Emergency (ER) | payer MEDICARE ==
[~2022-01-08] VITALS: Ht 167.6 cm; Wt 56.2 kg
[~2022-01-08 19:30] MED LIST: AMLO-212 PO; BUSP5TAB3 PO; DEXA4TAB PO; ESTR0.5T PO
--- NOTE | 2022-01-08 20:01 | NUR ---
BIBRA FOR MECHANICAL SLIP AND FALL AT HOME W L SIDED HEAD TRAUMA -BLOOD THINNERS. DENIES DYNCOPE. PT AWAKE AND ALERT XBASELINE MENTATION BREATHING EVEN AND UNLABORED. SON AT BEDSIDE AND V/S WNL.
--- NOTE | 2022-01-08 20:10 | NUR ---
EMT AT BEDSIDE FOR WOUND CARE
[2022-01-08] MEDS ORDERED: TDAP [DIPH/PERTUSSIS/TET] 0.5 ML VIAL IM ONE ×2 (20:14→20:30)
--- NOTE | 2022-01-08 20:29 | NUR ---
PT TRANSPORTED TO AND RETURNED FROM [facility] VIA [facility]
--- NOTE | 2022-01-08 21:55 | NUR ---
Patient discharged to home in stable condition. Written and verbal after care instructions given. Patient verbalizes understanding of instruction.
[2022-01-08 21:57] VITALS: BP 151/113
== END 2022-01-08 21:57 | disposition home or self-care (01) ==
LOC: ER 19:31
DX: S01.81XA Laceration without foreign body of other part of head, initial encounter (principal); I10 Essential (primary) hypertension; F41.9 Anxiety disorder, unspecified; Z79.899 Other long term (current) drug therapy; W01.0XXA Fall on same level from slipping, tripping and stumbling without subsequent striking against object, initial encounter; Y93.89 Activity, other specified; Y92.89 Other specified places as the place of occurrence of the external cause; Y99.8 Other external cause status
CPT/HCPCS: 70450-TC; 90715